=== PATIENT | male | born 1935 | race Caucasian/White ===

== ENCOUNTER 2016-10-13 06:15 | Emergency (ER) | payer MEDICARE, BC | END 2016-10-13 11:13 | disposition home or self-care (01) | DX: N40.1 Benign prostatic hyperplasia with lower urinary tract symptoms (principal); R33.8 Other retention of urine ==

== ENCOUNTER 2016-11-18 13:17 | Emergency (ER) | payer MEDICARE, BC ==
[2016-11-18] MEDS ORDERED: MAGNESIUM CITRATE 296 ML BOTTLE PO STA (14:01)
[2016-11-18] MEDS ORDERED: MAGNESIUM CITRATE 296 ML BOTTLE ONE (14:05)
== END 2016-11-18 14:09 | disposition home or self-care (01) ==
DX: K59.01 Slow transit constipation (principal)
CPT/HCPCS: 99282; 99283; A9270

== ENCOUNTER 2019-12-08 15:07 | Outpatient (CLI) | payer MEDICARE, BC | END 2019-12-08 15:08 | disposition home or self-care (01) | LOC: COV 15:07 | PROVIDERS: ATTEND Family Medicine | DX: R05 Cough (principal) | CPT/HCPCS: 81599 ==

== ENCOUNTER 2020-03-17 08:00 | Outpatient (CLI) | payer BC, MEDICARE ==
[2020-03-17 15:26] LABS: BASOPHILS % (AUTO) 0.4 %; EOSINOPHILS # (AUTO) 0.1 10^3/uL (0.0-0.7); EOSINOPHILS % (AUTO) 0.8 %; HGB - HEMOGLOBIN 14.8 g/dL (14.0-18.0); LYMPHOCYTES # (AUTO) 6.2 10^3/uL (1.5-3.5); LYMPHOCYTES % (AUTO) 54.6 %; MEAN CORPUSCULAR HEMOGLOBIN 34.6 pg (27.0-31.0); MEAN CORPUSCULAR HGB CONC 33.3 g/dL (32.0-36.0); MEAN PLATELET VOLUME 9.3 fL (7.4-11.4); MONOCYTES # (AUTO) 0.6 10^3/uL (0.0-1.0); MONOCYTES % (AUTO) 5.2 %; NEUTROPHILS # (AUTO) 4.4 10^3/uL (1.5-6.6); NEUTROPHILS % (AUTO) 38.6 %; PLT - PLATELET COUNT 235 10^3/uL (130-450); RED BLOOD COUNT 4.28 10^6/uL (4.70-6.10); WHITE BLOOD COUNT 11.4 x10^3/uL (4.8-10.8)
[2020-03-17 15:45] LABS: ALBUMIN/GLOBULIN RATIO 1.4 (1.0-2.2); BILIRUBIN,TOTAL 0.5 mg/dL (0.2-1.0); CALCIUM 9.1 mg/dL (8.5-10.3); CREATININE 0.9 mg/dL (0.6-1.2); TOTAL PROTEIN 6.9 g/dL (6.7-8.2)
[2020-03-17 16:57] LABS: PLATELET ESTIMATE, MANUAL NORMAL (130-450,000) (NORMAL); PLATELET MORPHOLOGY NORMAL APPEARANCE (NORMAL)
[2020-03-17 17:01] LABS: DIFFERENTIAL COMMENT MANUAL=AUTO DIFF
== END 2020-03-17 23:59 | disposition home or self-care (01) ==
LOC: LAB.S 08:00
PROVIDERS: ATTEND Emergency Medicine
DX: S86.911A Strain of unspecified muscle(s) and tendon(s) at lower leg level, right leg, initial encounter (principal)
CPT/HCPCS: 36415; 80053; 85025; 85379; 85610

== ENCOUNTER 2020-09-18 11:18 | Outpatient (CLI) | payer MEDICARE | END 2020-09-18 11:19 | disposition home or self-care (01) | LOC: LAB 11:18 | PROVIDERS: ATTEND Surgery | DX: Z01.812 Encounter for preprocedural laboratory examination (principal); K40.90 Unilateral inguinal hernia, without obstruction or gangrene, not specified as recurrent; Z20.822 Contact with and (suspected) exposure to COVID-19 ==

== ENCOUNTER 2020-09-21 10:47 | Day surgery (SDC) | payer MEDICARE ==
[~2020-09-21 10:47] MED LIST: ceFAZolin 2 GM/50 ML 2 GM/50 ML BAG IV ONE
[2020-09-21] MEDS ORDERED: BUPIVACAINE 0.5% PF 30 ML VIAL ONE (11:22)
[2020-09-21] MEDS ORDERED: LACTATED RINGERS 1,000 ML IV ONE ×2 (11:41→15:30)
--- NOTE | 2020-09-21 11:53 | ANESTHESIA ---
Pre-Anesthesia VS, & Labs - Diagnosis right inguinal hernia - Procedure right inguinal hernia repair Vital Signs: Temp Pulse Resp BP Pulse Ox 36.3 C L 76 18 122/68 98 09/21/20 11:06 09/21/20 11:06 09/21/20 11:06 09/21/20 11:06 09/21/20 11:06 Height: 6 ft Weight (kg): 80.3 kg Body Mass Index: 24.0 BMI Classification: Healthy weight - NPO >8 hours Home Medications and Allergies Home Medications: Ambulatory Orders Pantoprazole Sodium [Protonix] 20 mg PO DAILY 09/18/20 dilTIAZem HCl [Diltiazem 24Hr ER] 120 mg PO DAILY 09/09/14 Tadalafil [Cialis] 5 mg PO DAILY 11/18/16 Pantoprazole Sodium [Protonix] 20 mg PO DAILY 09/18/20 Allergies/Adverse Reactions: Allergies Allergy/AdvReac Type Severity Reaction Status Date / Time doxycycline AdvReac Nausea Verified 09/18/20 15:18 Anes History & Medical History - Anesthetic History Anesthesia Complications: reports: No previous complications - Medical History Cardiovascular: reports: Arrhythmia (svt treated with diltiazam, no recurrences) Pulmonary: reports: None Gastrointestinal: reports: GERD, Hiatal hernia Urinary: reports: Benign prostate hypertrophy Musculoskeletal: reports: None Endocrine/Autoimmune: reports: None Skin: reports: Rosacea Smoking Status: Never smoker History of Cancer?: Yes (SCCA back, 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
[2020-09-21] MEDS ORDERED: PROPOFOL 500 MG/50 ML 500 MG/50 ML VIAL ONE (12:17)
[2020-09-21] MEDS ORDERED: MIDAZOLAM 2 MG/2 ML VIAL ONE (12:17)
[2020-09-21] MEDS ORDERED: LIDOCAINE-MPF 2% 5 ML VIAL ONE (12:17)
[2020-09-21] MEDS ORDERED: fentaNYL 100 MCG/2 ML VIAL ONE (12:18)
[2020-09-21] MEDS ORDERED: BUPIVACAINE 0.5% PF 30 ML VIAL SUBQ ONE ×2 (12:48→13:31)
[2020-09-21] MEDS ORDERED: ATROPINE ABBOJECT 1 MG/10 ML SYRINGE IVP ONE (13:35)
[2020-09-21] MEDS ORDERED: ONDANSETRON 4 MG/2 ML VIAL IVP PRN (13:44)
[2020-09-21] MEDS ORDERED: HYDROmorphone 0.5 MG/0.5 ML SYRINGE IVP PRN (13:44)
[2020-09-21] MEDS ORDERED: ATROPINE ABBOJECT 1 MG/10 ML SYRINGE IVP PRN (13:44)
[2020-09-21] MEDS ORDERED: NALOXONE 0.4 MG/ML VIAL IVP PRN (13:44)
[2020-09-21] MEDS ORDERED: fentaNYL 100 MCG/2 ML VIAL IVP PRN (13:44)
[2020-09-21] MEDS ORDERED: MORPHINE 2 MG/ML CARPUJECT IVP PRN (13:44)
--- NOTE | 2020-09-21 13:47 | OPERATIVE REPORT ---
Operative Report - General Planned Procedure: Right inguinal herniorrhaphy without mesh (Desarda) Pre-Op Diagnosis: Right inguinal hernia Procedure Performed: Right direct and indirect inguinal herniorrhaphy (Desarda) and excision cord lipoma. CPT 90937 and [id number] -[id number]. ICD10 codes K40.90 and D17.6 Post Op Diagnosis: Right direct and indirect inguinal hernia and right cord lipoma. - Procedure Note Primary Surgeon: Gustavo Peter MD Anesthesia Provider: KARINA Cloud CRNA Anesthesia Technique: General mask, Local (30 mL of 1/2% Marcaine) IV Fluids (mL): 700 Estimated Blood Loss (mL): 2 Drain/Tube Type: Other (None) Complications: None - Other Other Information/Narrative: After verbal and written informed consent was obtained detailing the operation, the alternatives the operation including no operation, risks of infection, bleeding requiring transfusion with its risks, nerve injury, and and after I met with the patient confirming the surgery and the site of surgery, the patient was brought to the operative suite and placed supine on the operating table. Great care was taken to avoid pressure points to prevent pressure necrosis or nerve injury. Monitoring devices were applied along with TEDs and pneumatic compression stockings (to prevent DVT). The patient received preoperative antibiotics for surgical prophylaxis. First Brigette Cloud them Guilherme Patterson sedated and anesthetized the patient for the entire procedure. The patient was prepped and draped in the usual sterile manner. With the patient draped my initials were clearly visible. A "time in" then confirmed that the pa tient was identified with 3 identifiers (name, birthdate, and medical record number), the history and physical was updated and in the chart, the signed consent confirming the procedure was in the chart, the patient was in the correct position, the aforementioned prophylactic measures were in place or given, we had the correct personnel and equipment to complete the procedure and that anesthesia and the surgical team were given an opportunity to express any concerns. With the agreement of everyone in the room we proceeded with the operation. After the inguinal area was injected with half percent Marcaine, anesthetizing the area, a standard inguinal incision was made and dissection was carried down to the external oblique aponeurosis using a combination of Metzenbaum scissors and Bovie electrocautery. The external oblique aponeurosis was cleared of overlying adherent tissue, and the external ring was delineated the external oblique was incised with a scalpel and this incision was carried out to the external ring using Metzenbaum scissors. The external oblique was cut in line with the upper crux of the superficial ring. The external oblique was then dissected from the inguinal contents using finger dissection. A [place] drain was placed around the cord structures at the level of the pubic tubercle to be used for retraction. Adherent cremasteric muscle was dissected free from the cord using Bovie electrocautery. The ilioinguinal nerve was running in front with a genital branch of the genitofemoral nerve running behind the cord and both of these were seen and protected. The cord was then explored using a combination of sharp and blunt dissection, and a cord lipoma was first encountered. This was dissected back to the internal ring using a combination of sharp dissection, Bovie electrocautery, and a push technique. At the internal ring, the lipoma was suture ligated using 2-0 Vicryl suture, transected and the stump cauterized. The lipoma was sent off the operative field but not sent for pathologic evaluation. Continued exploration of the cord found a indirect sac anterior medial to the cord structures. The sac was dissected free from the cord structures using a combination of blunt dissection and Bovie electrocautery. Once preperitoneal fat was encountered the dissection was stopped and the sac was suture ligated at the level of the preperitoneal fat using a 2-0 Vicryl suture ligature. The sac was then excised, and stump cauterized. The sac was sent from the operative field but not sent for pathologic evaluation. Examination of the floor of the inguinal canal noted significant laxity to the point where I considered it a small direct hernia. The upper piece of the external oblique aponeurosis was sutured to the shelving edge of Poupart's ligament using a running 0 PDS suture behind the cord. The started at the pubic tubercle and run laterally to reform a new internal ring. A splitting incision was made in the sutured upper portion of the external oblique separate had a strip of 1.5 cm of the external oblique to use as the "patch." This incision was taken down to the pubic symphysis and 2 cm beyond the internal ring. The medial and lateral continuation of the strip of external oblique was left intact. The upper free border of this patch was then sutured to the conjoined tendon using a running 0 PDS starting at the pubic tubercle and running it laterally. The Bindu drain was removed. The spermatic cord along with the protected nerves was placed back into the inguinal canal in the lower portion of the external oblique was sutured to the newly formed upper portion of the external oblique with a 3-0 Vicryl thus recreating an external ring. The skin incision was approximated with 4-0 Monocryl in a subcuticular fashion. The skin was cleaned of its prep and Dermabond was applied. At this point a timeout was performed that confirmed that all counts were correct x2, the procedure that was performed, the blood loss, the IV fluids administered, the patient's condition, and any concerns of the operating team had. Gentle downward traction ensured that the testes were well seated in the scrotum. Having tolerated the procedure well, the patient was taken recovery room in good and stable condition. The plan is for outpatient discharge when the patient is adequately recovered. This document was created in part using voice recognition technology. Because of the inherent limitations of the system, occasional same sounding word substitutions and grammatical errors do occur and persist despite proofreading. Please read this document for content.
[2020-09-21] MEDS ORDERED: LACTATED RINGERS 1,000 ML IV SCH ×2 (14:00→15:00)
[2020-09-21] MEDS ORDERED: LACTATED RINGERS 300 ML IV ONE (14:05)
[2020-09-21] MEDS ORDERED: HYDROcod/ACETAM 5/325 MG TABLET PO PRN (14:14)
--- NOTE | 2020-09-21 14:27 | ANESTHESIA POST OP EVALUATION ---
Anesthesia Post Eval - Post Anesthesia Eval Vitals: Last Vital Signs Temp 36.2 C L 09/21/20 14:07 Pulse 45 L 09/21/20 14:07 Resp 15 09/21/20 14:07 BP 101/62 09/21/20 14:07 Pulse Ox 98 09/21/20 14:07 CV Function Including HR & BP: positive: Stable Pain Control: positive: Satisfactory Nausea & Vomiting: positive: Negative Mental Status: positive: Baseline Respiratory Status: Airway Patent Hydration Status: Satisfactory Anesthesia Complications: positive: None
[2020-09-21 15:57] VITALS: BP 128/64
== END 2020-09-21 10:48 | disposition home or self-care (01) ==
LOC: SDS 10:47
PROVIDERS: ATTEND Surgery
PROC: 0VBF0ZZ Excision of Right Spermatic Cord, Open Approach (ICD-10-PCS; 2020-09-21)
PROC: 0YQ50ZZ Repair Right Inguinal Region, Open Approach (ICD-10-PCS; principal; 2020-09-21 12:00)
DX: K40.20 Bilateral inguinal hernia, without obstruction or gangrene, not specified as recurrent (principal); D17.6 Benign lipomatous neoplasm of spermatic cord; G47.33 Obstructive sleep apnea (adult) (pediatric); N40.0 Benign prostatic hyperplasia without lower urinary tract symptoms
CPT/HCPCS: 49505; 55520; J0690; J7120

== ENCOUNTER 2020-09-26 08:37 | Emergency (ER) | payer MEDICARE ==
--- NOTE | 2020-09-26 09:50 | ED Physician Documentation ---
PD HPI ABD PAIN - Stated complaint Stated Complaint: CONSTIPATION - Chief complaint Chief Complaint: Abd Pain - History obtained from History obtained from: Patient - History of Present Illness Timing - onset: How many days ago (6) Timing - duration: Days (6) Timing - details: Gradual onset, Still present Quality: Cramping, Pain Location: All over / everywhere Improved by: BM Associated symptoms: Constipation. No: Fever, Nausea, Vomiting, Hematemesis Similar symptoms before: Diagnosis (bladder outlet obstruction causing constipation) Recently seen: Surgery - Additional information Additional information: 85-year-old male has had a recent inguinal hernia repair is constipated. He denies having taken any pain medication associated with the repair. He did have a bowel movement yesterday of 2 small hard bowel movements. He states that he has not had a normal bowel movement in 6 days. Review of Systems Constitutional: denies: Fever Eyes: denies: Decreased vision Ears: denies: Ear pain Nose: denies: Congestion Throat: denies: Sore throat Cardiac: denies: Chest pain / pressure, Palpitations Respiratory: denies: Dyspnea, Cough GI: reports: Abdominal Pain, Constipation. denies: Nausea, Vomiting : denies: Dysuria, Frequency Skin: denies: Rash Musculoskeletal: denies: Neck pain, Back pain, Extremity pain Neurologic: denies: Generalized weakness, Focal weakness, Numbness PD PAST MEDICAL HISTORY - Past Medical History Past Medical History: Yes Cardiovascular: Arrhythmia Respiratory: None Neuro: Tremors Endocrine/Autoimmune: None GI: GERD, Hiatal hernia : Benign prostate hypertrophy HEENT: Chronic vision loss, Chronic hearing loss Psych: None Musculoskeletal: Other Derm: Rosacea - Past Surgical History Past Surgical History: Yes General: Colonoscopy, Other Ortho: Carpal Tunnel surgery, Spine surgery HEENT: Cataracts - Present Medications Home Medications: Ambulatory Orders Medication Instructions Recorded Confirmed Tadalafil [Cialis] 5 mg PO DAILY 11/18/16 09/26/20 Docusate Sodium 250Mg Capsule 250 mg PO DAILY #10 capsule 09/21/20 09/26/20 [Colace 250Mg Capsule] HYDROcod/ACETAM 5/325 [[place] 5/325] 1 each PO Q4H #7 tablet 09/21/20 09/26/20 Famotidine [Pepcid] 20 mg PO BID PRN 09/26/20 09/26/20 dilTIAZem HCL [Diltiazem 24Hr ER 180 mg PO DAILY 09/26/20 09/26/20 (Xr)] - Allergies Allergies/Adverse Reactions: Allergies Allergy/AdvReac Type Severity Reaction Status Date / Time doxycycline AdvReac Nausea Verified 09/26/20 08:45 - Social History Does the pt smoke?: No Smoking Status: Never smoker Does the pt drink ETOH?: Yes ETOH Use: Wine Does the pt have substance abuse?: No - Immunizations Immunizations are current?: Yes - POLST Patient has POLST: No PD ED PE NORMAL - Vitals Vital signs reviewed: Yes (hypertensive mild ) - General General: Alert and oriented X 3, No acute distress, Well developed/nourished - HEENT HEENT: Atraumatic, PERRL, EOMI - Respiratory Respiratory: No respiratory distress - Abdomen Abdomen: Normal bowel sounds, Soft, Non tender, Non distended, No organomegaly - Back Back: No CVA TTP, No spinal TTP - Derm Derm: Normal color, Warm and dry, No rash - Extremities Extremities: No deformity, No edema - Neuro Neuro: Alert and oriented X 3, corporate safety director 2-12 intact, No motor deficit, No sensory deficit, Normal speech Eye Opening: Spontaneous Motor: Obeys Commands Verbal: Oriented GCS Score: 15 - Psych Psych: Normal mood, Normal affect Results - Vitals Vitals: Vital Signs - 24 hr 09/26/20 09/26/20 09/26/20 08:39 09:05 10:44 Temperature 36.8 C 36.8 C Heart Rate 86 80 66 Respiratory 17 16 18 Rate Blood Pressure 136/68 H 127/63 131/73 H O2 Saturation 99 100 98 09/26/20 11:37 Temperature Heart Rate 65 Respiratory 18 Rate Blood Pressure 124/65 O2 Saturation 100 Oxygen O2 Source Room air - Rads (name of study) kub Radiology: Prelim report reviewed (Impression: Moderate colonic fecal loading.), EMP read indepedently, See rad report PD MEDICAL DECISION MAKING - ED course Complexity details: reviewed results, re-evaluated patient, considered differential, d/w patient ED course: 85-year-old male with constipation has a small bowel movement out with an enema feels like he still has stool in and a plain film is used to quantitate the stool there is stool remaining throughout the rest of the colon does not look like anything in the sigmoid and I am going to recommend milk of magnesia. Departure - Departure Disposition: 01 Home, Self Care Clinical Impression: Constipation Condition: Stable Instructions: ED Constipation Follow-Up: Parker Shine MD [Primary Care Provider] - Comments: Today it does look like you have a fair stool burden most of it is on the right side which means you will need to use a stimulant laxative to get the stool to move. My recommendation is to take a dose of milk of magnesia when you return home and if you do not have results within 6 hours take a second dose.
[2020-09-26 11:37] VITALS: BP 124/65
--- NOTE | 2020-09-26 11:44 | XRAY Report ---
PROCEDURE: Abdomen 1 View X-Ray INDICATIONS: stool quantitation TECHNIQUE: 1 view of the abdomen were acquired. COMPARISON: 10/13/2016 and 09/09/2014. FINDINGS: Surgical changes and devices: Lumbar spine fixation hardware is stable. Bowel: No pneumoperitoneum. The bowel gas pattern is normal. Moderate amount of stool noted in the right colon, transverse colon and distal left colon. Soft tissues: No masses; visualized solid organ contours appear normal in size. No suspicious abdom inal calcifications. Bones: No suspicious bony abnormalities. IMPRESSION: Moderate colonic fecal loading. Reviewed by: Coby Coley MD, PhD on 09/26/2020 10:42 AM [facility] Approved by: Coby Coley MD, PhD on 09/26/2020 10:42 AM [facility] Station ID: [id number]
[2020-09-26] MEDS ORDERED: MAGNESIUM HYDROXIDE 2,400 MG/30 ML UDC PO STA (12:01)
== END 2020-09-26 12:21 | disposition home or self-care (01) ==
LOC: ED 08:37
DX: K59.00 Constipation, unspecified (principal)
CPT/HCPCS: 74018; 99283; 99284; A9270

== ENCOUNTER 2022-01-11 08:00 | Outpatient (CLI) | payer MEDICARE | END 2022-01-11 23:59 | disposition home or self-care (01) | LOC: LAB.S 08:00 | PROVIDERS: ATTEND Emergency Medicine | DX: J02.9 Acute pharyngitis, unspecified (principal); Z20.822 Contact with and (suspected) exposure to COVID-19 ==

== ENCOUNTER 2022-01-24 08:00 | Outpatient (CLI) | payer MEDICARE ==
[2022-01-24 14:50] LABS: ALBUMIN 3.8 g/dL (3.2-5.5); ALBUMIN/GLOBULIN RATIO 1.6 (1.0-2.2); BILIRUBIN,TOTAL 0.8 mg/dL (0.2-1.0); CALCIUM 8.9 mg/dL (8.5-10.3); CREATININE 1.1 mg/dL (0.6-1.2); POTASSIUM 4.1 mmol/L (3.5-5.0); TOTAL PROTEIN 6.2 g/dL (6.7-8.2)
[2022-01-24 14:52] LABS: BASOPHILS % (AUTO) 0.2 %; EOSINOPHILS # (AUTO) 0.1 10^3/uL (0.0-0.7); EOSINOPHILS % (AUTO) 0.6 %; HCT - HEMATOCRIT 42.4 % (42.0-52.0); HGB - HEMOGLOBIN 13.8 g/dL (14.0-18.0); LYMPHOCYTES # (AUTO) 4.4 10^3/uL (1.5-3.5); LYMPHOCYTES % (AUTO) 46.5 %; MEAN CORPUSCULAR HEMOGLOBIN 34.8 pg (27.0-31.0); MEAN CORPUSCULAR HGB CONC 32.5 g/dL (32.0-36.0); MEAN CORPUSCULAR VOLUME 106.8 fL (80.0-94.0); MEAN PLATELET VOLUME 9.2 fL (7.4-11.4); MONOCYTES # (AUTO) 0.5 10^3/uL (0.0-1.0); MONOCYTES % (AUTO) 5.5 %; NEUTROPHILS # (AUTO) 4.4 10^3/uL (1.5-6.6); NEUTROPHILS % (AUTO) 46.9 %; PLT - PLATELET COUNT 250 10^3/uL (130-450); RED BLOOD COUNT 3.97 10^6/uL (4.70-6.10); RED CELL DISTRIBUTION WIDTH 12.8 % (12.0-15.0); WHITE BLOOD COUNT 9.4 x10^3/uL (4.8-10.8)
[2022-01-24 15:01] LABS: SLIDE REVIEW? Indicated
[2022-01-24 21:39] LABS: PLATELET ESTIMATE, MANUAL NORMAL (130-450,000) (NORMAL); PLATELET MORPHOLOGY NORMAL APPEARANCE (NORMAL)
[2022-01-24 21:40] LABS: DIFFERENTIAL COMMENT MANUAL=AUTO DIFF
== END 2022-01-24 23:59 | disposition home or self-care (01) ==
LOC: LAB.S 08:00
PROVIDERS: ATTEND Emergency Medicine
DX: C91.10 Chronic lymphocytic leukemia of B-cell type not having achieved remission (principal); M88.9 Osteitis deformans of unspecified bone
CPT/HCPCS: 36415; 80053; 83615; 85025

== ENCOUNTER 2022-05-03 06:31 | Day surgery (SDC) | payer MEDICARE ==
[~2022-05-03 06:31] MED LIST changes: +CEFAZOLIN 2G/50ML 0.9% NS 2 GM/50 ML BAG IV ONE; -ceFAZolin 2 GM/50 ML 2 GM/50 ML BAG IV ONE
[2022-05-03] MEDS ORDERED: LACTATED RINGERS 1,000 ML IV ONE (06:36)
[2022-05-03] MEDS ORDERED: BUPIVACAINE 0.5% PF 30 ML VIAL ONE (07:18)
[2022-05-03] MEDS ORDERED: PROPOFOL 200 MG/20 ML VIAL IVP ONE (07:24)
[2022-05-03] MEDS ORDERED: LIDOCAINE-MPF 2% 5 ML VIAL ONE (07:24)
[2022-05-03] MEDS ORDERED: ONDANSETRON 4 MG/2 ML VIAL ONE (07:25)
[2022-05-03] MEDS ORDERED: fentaNYL 100 MCG/2 ML VIAL ONE (07:25)
[2022-05-03] MEDS ORDERED: DEXAMETHASONE 4 MG/ML VIAL ONE (07:25)
--- NOTE | 2022-05-03 07:31 | ANESTHESIA ---
Pre-Anesthesia VS, & Labs - Diagnosis symptomatic left inguinal hernia - Procedure inguinal hernia repair Vital Signs: Temp Pulse Resp BP Pulse Ox 37.1 C 88 18 135/70 H 96 05/03/22 06:37 05/03/22 06:37 05/03/22 06:37 05/03/22 06:37 05/03/22 06:37 Height: 5 ft 11 in Weight (kg): 76.6 kg Body Mass Index: 23.6 BMI Classification: Healthy weight - NPO >8 hours Home Medications and Allergies Tadalafil [Cialis] 5 mg PO DAILY 11/18/16 Famotidine [Pepcid] 20 mg PO BID PRN 09/26/20 dilTIAZem HCL [Diltiazem 24Hr ER (Xr)] 180 mg PO DAILY 09/26/20 Allergies/Adverse Reactions: Allergies Allergy/AdvReac Type Severity Reaction Status Date / Time doxycycline AdvReac Nausea Verified 09/26/20 08:45 Anes History & Medical History - Anesthetic History Anesthesia Complications: reports: No previous complications Family history of Anesthesia Complications: Denies Family history of Malignant Hyperthermia: Denies - Medical History Cardiovascular: reports: Arrhythmia Pulmonary: reports: None Gastrointestinal: reports: GERD, Esophageal varices, Hiatal hernia, Chronic constipation Urinary: reports: Benign prostate hypertrophy, Retention Neuro: reports: Tremors Musculoskeletal: reports: Other (S1 fusion) Endocrine/Autoimmune: reports: None Blood Disorders: reports: None Skin: reports: Rosacea, Other Smoking Status: Never smoker Psychosocial: reports: No issues indicated History of Cancer?: No - Surgical History General: reports: Colonoscopy, EGD, Other Eyes Ears Nose Throat (EENT): reports: Cataracts Orthopedic: reports: Carpal Tunnel surgery, Spine surgery Dermatologic: reports: Skin cancer surgery Exam General: Alert, Oriented x3, Cooperative Respiratory: Lungs clear Cardiovascular: Regular rate Mental/Cognitive Status: Alert/Oriented X3 Cognitive Status: Within normal limits Plan Anesthesia Type: General Consent for Procedure(s) Verified and Reviewed: Yes Code Status: Attempt Resuscitation ASA classification: 2-Mild systemic disease Is this case an emergency?: No
[2022-05-03] MEDS ORDERED: BUPIVACAINE 0.5% PF 30 ML VIAL SUBQ ONE (08:11)
[2022-05-03] MEDS ORDERED: ePHEDrine 50 MG/ML VIAL IVP ONE (08:52)
[2022-05-03] MEDS ORDERED: fentaNYL 100 MCG/2 ML VIAL IVP PRN (09:40)
[2022-05-03] MEDS ORDERED: NALOXONE 0.4 MG/ML VIAL IVP PRN (09:40)
[2022-05-03] MEDS ORDERED: MORPHINE 2 MG/ML CARPUJECT IVP PRN (09:40)
[2022-05-03] MEDS ORDERED: ATROPINE ABBOJECT 1 MG/10 ML SYRINGE IVP PRN (09:40)
[2022-05-03] MEDS ORDERED: HYDROmorphone 0.5 MG/0.5 ML SYRINGE IVP PRN ×2 (09:40→09:42)
[2022-05-03] MEDS ORDERED: ONDANSETRON 4 MG/2 ML VIAL IVP PRN ×2 (09:40→09:42)
[2022-05-03] MEDS ORDERED: HYDROcod/ACETAM 5/325 MG TABLET PO PRN (09:42)
--- NOTE | 2022-05-03 09:47 | OPERATIVE REPORT ---
Operative Report - General Procedure Date: 05/03/22 Planned Procedure: Left inguinal herniorrhaphy patient preference is for mesh not to be used Pre-Op Diagnosis: LEFT inguinal hernia Procedure Performed: [place] LEFT direct inguinal herniorrhaphy Post Op Diagnosis: LEFT direct inguinal hernia - Procedure Note Primary Surgeon: Gustavo Peter MD Anesthesia Provider: Guilherme Patterson CRNA proctoring Maria Del Rosario OLSON Anesthesia Technique: General LMA, Local (30 mL of half percent Marcaine) IV Fluids (mL): 1,000 Estimated Blood Loss (mL): 5 Drain/Tube Type: Other (None.) Indications: Symptomatic LEFT inguinal hernia Findings: Large direct LEFT inguinal hernia (essential absence of the floor) Complications: None. - Other Other Information/Narrative: After verbal and written informed consent was obtained detailing the operation, the alternatives the operation including no operation, risks of infection, bleeding requiring transfusion with its risks, nerve injury, and and after I met with the patient confirming the surgery and the site of surgery, the patient was brought to the operative suite and placed supine on the operating table. Great care was taken to avoid pressure points to prevent pressure necrosis or nerve injury. Monitoring devices were applied along with TEDs and pneumatic compression stockings (to prevent DVT). The patient received preoperative antibiotics for surgical prophylaxis. WESLEY Diallo actively proctored by Guilherme Patterson CRNA sedated and anesthetized the patient for the entire procedure. The patient was prepped and draped in the usual sterile manner. With the patient draped my initials were clearly visible. A "time in" then confirmed that the patient was identified with 3 identifiers (name, date, and medical record number), the history and physical was updated and in the chart, the signed consent confirming the procedure was in the chart, the patient was in the correct position, the aforementioned prophylactic measures were in place or given, we had the correct personnel and equipment to complete the procedure and that anesthesia and the surgical team were given an opportunity to express any concerns. With the agreement of everyone in the room we proceeded with the operation. A standard inguinal incision was made and dissection was carried down to the external oblique aponeurosis using a combination of Metzenbaum scissors and Bovie electrocautery. The external oblique aponeurosis was cleared of overlying adherent tissue, and the external ring was delineated the external oblique was incised with a scalpel and this incision was carried out to the external ring using Metzenbaum scissors. The external oblique was cut in line with the upper crux of the superficial ring. The external oblique was then dissected from the inguinal contents using finger dissection. A Bindu drain was placed around the cord structures at the level of the pubic tubercle to be used for retraction. Adherent cremasteric muscle was dissected free from the cord using Bovie electrocautery. The ilioinguinal nerve was running in front with a genital branch of the genitofemoral nerve running behind the cord and both of these were seen and protected. The cord was then explored using a combination of sharp and blunt dissection, and an indirect hernia or cord lipoma were not seen. Examination of the floor of the inguinal canal noted a near complete absence of the floor thus this was a large direct hernia. Interrupted 2-0 Prolene sutures were then used to approximate the conjoined tendon to the shelving edge of Poupart's ligament. There was no significant tension with this repair. A 1.5 cm strip of the upper portion of the external bleak was then taking care to leave the medial and lateral attachments intact and this was sewn on top of the aforementioned repair with interrupted 2-0 Prolene sutures thus further buttressing the repair. Examination of the floor showed this to be intact without any undue tension and with a well-formed internal ring. The [place] drain was removed. The spermatic cord along with the protected nerves was placed back into the inguinal canal in the lower portion of the external oblique was sutured to the newly formed upper portion of the external oblique with a 3-0 Vicryl thus recreating an external ring. The skin incision was approximated with 4-0 Monocryl in a subcuticular fashion. The skin was cleaned of its prep and Dermabond was applied. At this point a timeout was performed that confirmed that all counts were correct x2, the procedure that was performed, the blood loss, the IV fluids administered, the patient's condition, and any concerns of the operating team had. Gentle downward traction ensured that the testes were well seated in the scrotum. Having tolerated the procedure well, the patient was taken recovery room in good and stable condition. The plan is for outpatient discharge when the patient is adequately recovered. This document was created in part using voice recognition technology. Because of the inherent limitations of the system, occasional same sounding word substitutions and grammatical errors do occur and persist despite proofreading. Please read this document for content. [facility] [id number]
[2022-05-03] MEDS ORDERED: LACTATED RINGERS 800 ML IV ONE (09:52)
[2022-05-03] MEDS ORDERED: LACTATED RINGERS 1,000 ML IV SCH (10:00)
[2022-05-03 10:33] VITALS: BP 112/72
--- NOTE | 2022-05-03 15:14 | ANESTHESIA POST OP EVALUATION ---
Anesthesia Post Eval - Post Anesthesia Eval Vitals: Last Vital Signs Temp 36.8 C 05/03/22 10:25 Pulse 76 05/03/22 10:25 Resp 11 L 05/03/22 10:25 BP 112/72 05/03/22 10:25 Pulse Ox 97 05/03/22 10:25 CV Function Including HR & BP: Stable Pain Control: Satisfactory Nausea & Vomiting: Negative Mental Status: Baseline Respiratory Status: Airway Patent Hydration Status: Satisfactory Anesthesia Complications: None
== END 2022-05-03 06:32 | disposition home or self-care (01) ==
LOC: SDS 06:31
PROVIDERS: ATTEND Surgery
DX: K40.90 Unilateral inguinal hernia, without obstruction or gangrene, not specified as recurrent (principal); G47.33 Obstructive sleep apnea (adult) (pediatric)
CPT/HCPCS: 49505; J0690; J7120

== ENCOUNTER 2022-07-24 10:56 | Day surgery (SDC) | payer MEDICARE ==
[2022-07-24] MEDS ORDERED: LACTATED RINGERS 1,000 ML IV ONE ×2 (11:01→14:08)
--- NOTE | 2022-07-24 12:36 | ANESTHESIA ---
Pre-Anesthesia VS, & Labs - Diagnosis hx of polyps - Procedure colonoscopy Vital Signs: Temp Pulse Resp BP Pulse Ox O2 Flow Rate 36.3 C L 82 16 117/76 99 07/24/22 11:01 07/24/22 11:01 07/24/22 11:01 07/24/22 11:01 07/24/22 11:01 Height: 5 ft 11 in Weight (kg): 76.5 kg Body Mass Index: 23.5 BMI Classification: Normal - NPO >8 hours Home Medications and Allergies Tadalafil [Cialis] 5 mg PO DAILY 11/18/16 Famotidine [Pepcid] 20 mg PO BID PRN 09/26/20 dilTIAZem HCL [Diltiazem 24Hr ER (Xr)] 180 mg PO DAILY 09/26/20 Allergies/Adverse Reactions: Allergies Allergy/AdvReac Type Severity Reaction Status Date / Time doxycycline AdvReac Nausea Verified 09/26/20 08:45 Anes History & Medical History - Anesthetic History Anesthesia Complications: reports: No previous complications Family history of Anesthesia Complications: Denies Family history of Malignant Hyperthermia: Denies - Medical History Cardiovascular: reports: Arrhythmia Pulmonary: reports: None Gastrointestinal: reports: GERD, Esophageal varices, Hiatal hernia, Chronic constipation, Other Urinary: reports: Benign prostate hypertrophy, Retention Neuro: reports: Tremors Musculoskeletal: reports: Other Endocrine/Autoimmune: reports: None Blood Disorders: reports: None Skin: reports: Rosacea, Other Smoking Status: Never smoker - Surgical History General: reports: Colonoscopy, EGD, Other Eyes Ears Nose Throat (EENT): reports: Cataracts Orthopedic: reports: Carpal Tunnel surgery, Spine surgery Dermatologic: reports: Skin cancer surgery Exam General: Alert, Oriented x3, Cooperative Dental: WNL Mouth Openin Fingerbreadth Neck Mobility: Normal Mallampati classification: II Thyromental Distance: 4-6 cm Respiratory: Lungs clear Cardiovascular: Regular rate Plan Anesthesia Type: Total IV Consent for Procedure(s) Verified and Reviewed: Yes Code Status: Attempt Resuscitation ASA classification: 3-Severe systemic disease Is this case an emergency?: No
[2022-07-24] MEDS ORDERED: PROPOFOL 200 MG/20 ML VIAL IVP ONE ×2 (12:48→13:36)
[2022-07-24 14:25] VITALS: BP 112/66
--- NOTE | 2022-07-24 16:21 | ANESTHESIA POST OP EVALUATION ---
Anesthesia Post Eval - Post Anesthesia Eval Vitals: Last Vital Signs Temp 36.2 C L 07/24/22 14:24 Pulse 66 07/24/22 14:24 Resp 14 07/24/22 14:24 BP 112/66 07/24/22 14:24 Pulse Ox 98 07/24/22 14:24 O2 Flow Rate CV Function Including HR & BP: Stable Pain Control: Satisfactory Nausea & Vomiting: Negative Mental Status: Baseline Respiratory Status: Airway Patent Hydration Status: Satisfactory Anesthesia Complications: None
== END 2022-07-24 10:57 | disposition home or self-care (01) ==
LOC: SDS 10:56
PROVIDERS: ATTEND Surgery
PROC: 0DBP8ZX Excision of Rectum, Via Natural or Artificial Opening Endoscopic, Diagnostic (ICD-10-PCS; 2022-07-24)
PROC: 0DBK8ZX Excision of Ascending Colon, Via Natural or Artificial Opening Endoscopic, Diagnostic (ICD-10-PCS; principal; 2022-07-24 12:00)
DX: Z12.11 Encounter for screening for malignant neoplasm of colon (principal); K62.1 Rectal polyp; K63.5 Polyp of colon; K64.8 Other hemorrhoids; G47.33 Obstructive sleep apnea (adult) (pediatric)
CPT/HCPCS: 45380; J7120

== ENCOUNTER 2023-02-07 08:00 | Outpatient (CLI) | payer MEDICARE ==
[2023-02-07 20:11] LABS: BILIRUBIN,URINE NEGATIVE (NEGATIVE); GLUCOSE, URINE (UA) NEGATIVE (NEGATIVE); KETONES,URINE (UA) NEGATIVE (NEGATIVE); LEUKOCYTE ESTERASE, URINE LARGE (NEGATIVE); NITRITE,URINE POSITIVE (NEGATIVE); OCCULT BLOOD,URINE TRACE-INTA (NEGATIVE); PROTEIN,URINE NEGATIVE (NEGATIVE); UROBILINOGEN,URINE 2 E.U./dL (NORMAL)
[2023-02-07 20:13] LABS: CLARITY,URINE CLOUDY (CLEAR)
[2023-02-07 20:25] LABS: BACTERIA,URINE Many /HPF (None Seen); RBC,URINE 0-5 /HPF (0-5); SQUAMOUS EPITHELIAL CELL,UR RARE Squamous (<= Few); WBC,URINE >25 /HPF (0-3)
== END 2023-02-07 23:59 | disposition home or self-care (01) ==
LOC: LAB 08:00
PROVIDERS: ATTEND Emergency Medicine
DX: N39.0 Urinary tract infection, site not specified (principal)
CPT/HCPCS: 81001; 87086; 87181

== ENCOUNTER 2023-04-18 08:19 | Outpatient (CLI) | payer MEDICARE ==
[2023-04-18 14:23] LABS: HCT - HEMATOCRIT 41.1 % (42.0-52.0); HGB - HEMOGLOBIN 13.3 g/dL (14.0-18.0); MEAN CORPUSCULAR HEMOGLOBIN 34.3 pg (27.0-31.0); MEAN CORPUSCULAR HGB CONC 32.4 g/dL (32.0-36.0); MEAN CORPUSCULAR VOLUME 105.9 fL (80.0-94.0); MEAN PLATELET VOLUME 8.9 fL (7.4-11.4); RED BLOOD COUNT 3.88 10^6/uL (4.70-6.10); RED CELL DISTRIBUTION WIDTH 13.6 % (12.0-15.0); WHITE BLOOD COUNT 12.1 x10^3/uL (4.8-10.8)
[2023-04-18 14:43] LABS: CALCIUM 8.9 mg/dL (8.5-10.3); CREATININE 0.9 mg/dL (0.6-1.3); POTASSIUM 4.1 mmol/L (3.5-4.5)
== END 2023-04-18 08:20 | disposition home or self-care (01) ==
LOC: LAB.S 08:19
PROVIDERS: ATTEND Physician Assistant
DX: C91.10 Chronic lymphocytic leukemia of B-cell type not having achieved remission (principal); R60.0 Localized edema
CPT/HCPCS: 36415; 80048; 85027